=== PATIENT | male | born 1970 | race Caucasian/White ===

== ENCOUNTER 2018-09-12 15:59 | Emergency (ER) | payer BC ==
[~2018-09-12] VITALS: Ht 175.3 cm; Wt 90.9 kg
[~2018-09-12 15:59] MED LIST: ANTABUSE500 MG PO; BAYER CHEWABLE81 MG PO; BYSTOLIC5 MG PO; HYDROCODONE-APA1 TAB PO; PERCOCET 10/3251 TA1 PO; PLAVIX75 MG PO; ROBAXIN-750750 MG PO; ROBAXIN500 MG PO
[2018-09-12 16:00] VITALS: BP 209/124; Ht 175.3 cm; Wt 90.9 kg
== END 2018-09-12 17:53 | disposition home or self-care (01) ==
LOC: D.ER 15:59
DX: S00.01XA Abrasion of scalp, initial encounter (principal); W18.30XA Fall on same level, unspecified, initial encounter; Y93.89 Activity, other specified; Y92.014 Private driveway to single-family (private) house as the place of occurrence of the external cause